=== PATIENT | male | born 1975 | race Caucasian/White ===

== ENCOUNTER 2018-12-10 05:06 | Day surgery (SDC) | payer BC, OTHER ==
[2018-12-09 12:28] VITALS: BMI 27.3
[2018-12-10] MEDS ORDERED: DEXAMETHASONE SOD PHOSPHATE 4 MG/1 ML VIAL ONE ×2 (08:15→11:49)
[2018-12-10] MEDS ORDERED: SODIUM CHLORIDE 0.9% P/F 10 ML VIAL IJ ONE (08:15)
[2018-12-10] MEDS ORDERED: ceFAZolin SODIUM 1 GM VIAL ONE ×2 (08:15→11:49)
[2018-12-10] MEDS ORDERED: LIDOCAINE HCL/PF 2% SDV 5ML VIAL ONE ×2 (08:15→11:49)
[2018-12-10] MEDS ORDERED: KETOROLAC TROMETHAMINE 30 MG/1 ML VIAL ONE ×2 (08:15→11:49)
[2018-12-10] MEDS ORDERED: PROPOFOL 20 ML ONE ×2 (08:17→10:33)
[2018-12-10] MEDS ORDERED: DESFLURANE GAS 240 ML BOTTLE IH ONE (08:21)
[2018-12-10] MEDS ORDERED: DEXMEDETOMIDINE HCL 200 MCG/2 ML IVPB ONE (08:21)
[2018-12-10] MEDS ORDERED: BUPIVACAINE HCL/PF 0.5% (5MG/ML) 10 ML VIAL ONE (08:57)
[2018-12-10] MEDS ORDERED: MIDAZOLAM HCL 2 MG/2 ML SINGLE DOSE VIAL ONE ×3 (08:58→10:32)
--- NOTE | 2018-12-10 10:07 | HP ---
[facility] - Chief Complaint Chief Complaint: left ankle fx - Past Medical History Allergies/Adverse Reactions: Allergies Allergy/AdvReac Type Severity Reaction Status Date / Time Penicillins Allergy Severe Rash Verified 12/10/18 08:56 - Current Medications Current Medications: Home Medications Medication Instructions Recorded Oxycodone HCl/Acetaminophen 1 tab PO Q6H PRN #30 tablet MDD 6 12/10/18 [Percocet 5-325 mg Tablet] [facility]ellite Physical Exam - Physical Examination Vital Signs: Vital Signs Period Temp Pulse Resp BP Sys/Webster Pulse Ox Last 24 Hr 98.2 F-98.2 F 100-100 20-20 113-113/79-79 99 General Appearance: Well Nourished, Well Developed, Alert & Oriented x3 ENT: Clear Lung: Normal air movement Heart: Regular rate & rhythm Extremities: Other (left ankle- splint intact, + swelling, + ttp, nvi xrays show bella c distal fibula fx, medial mall fx, widening of the mortise) Neurological: Intact, Alert, Oriented [facility]ellite Impression/Plan - Impression/Plan Impression: left ankle fx Operative Procedure: left ankle orif Date to be Performed: 12/10/18
[2018-12-10] MEDS: ceFAZolin SODIUM 1 GM VIAL IVPB ONE ×2 (10:35→15:20)
--- NOTE | 2018-12-10 12:03 | OP ---
Operative Note - Note: Operative Date: 12/10/18 ([facility]) Pre-Operative Diagnosis: left ankle fx Operation: left ankle orif, syndesmosis repair Post-Operative Diagnosis: Same as Pre-op Surgeon: Joseph Vogel Sap Bw Architect: Eugenio Langston Anesthesiologist/CONSULTANT IN ERGONOMICS AND SAFETY: Daniella Ordonez MD Anesthesia: General, Local Estimated Blood Loss (mls): 5 (tourniquet) Operative Report Dictated: Yes
[2018-12-10] MEDS ORDERED: CEFAZOLIN 1 GM/D5W 1 GM/50 ML BAG IVPB ONE (12:15)
[2018-12-10] MEDS ORDERED: PROMETHAZINE HCL 25 MG/1 ML VIAL IVPB PRN (12:20)
[2018-12-10] MEDS ORDERED: oxyCODONE HCL 5 MG TABLET PO PRN (12:20)
[2018-12-10] MEDS ORDERED: ONDANSETRON 4 MG/2 ML VIAL IVPUSH PRN (12:20)
[2018-12-10] MEDS ORDERED: LACTATED RINGERS SOLUTION 1,000 ML IV SCH (12:30)
[2018-12-10] MEDS ORDERED: CEFAZOLIN 1 GM/D5W 1 GM/50 ML BAG ONE (14:18)
[2018-12-10 15:19] VITALS: TEMP 97.7
[2018-12-10 16:07] VITALS: BP 124/86; PULSE 80
--- NOTE | 2018-12-11 06:57 | OP ---
DATE OF OPERATION: 12/10/2018 PREOPERATIVE DIAGNOSIS: Cox C left ankle fracture with syndesmosis rupture. POSTOPERATIVE DIAGNOSIS: Cox C left ankle fracture with syndesmosis rupture. PROCEDURE: Open reduction and internal fixation, left bimalleolar ankle fracture and syndesmosis repair. SURGICAL ATTENDING: Joseph Vogel MD MAINTENANCE SHOP CLERK: BYRON Fox ANESTHESIA: Regional and general. CLOSURE: A [place] distal fibula straight plate with appropriate screws laterally, two 4.0 cannulated screws in the medial malleolus, 1 syndesmosis TightRope and 2-0 Vicryl, subcutaneous, and alin, skin. ESTIMATED BLOOD LOSS: Negligible. TOURNIQUET TIME: Approximately an hour and 10 minutes. COMPLICATIONS: None. CONDITION: To recovery room in stable condition. DESCRIPTION OF OPERATIVE PROCEDURE: Patient taken to the operating room on December 10, 2018. Regional and general anesthesia was administered by the anesthesiologist. IV Kefzol administered prophylactically prior to the case. A well-padded pneumatic tourniquet was placed on the left proximal calf away from the fibular head. Left lower extremity was prepped and draped in the usual sterile fashion. Leg was exsanguinated with an Esmarch bandage. Tourniquet was inflated to 250 mmHg. An 8-cm longitudinal incision over the lateral distal fibula centered over the fracture was incised. Hemostasis achieved with Bovie cautery. Sharp dissection was carried down to the level of the fracture. Periosteal elevator was used to clear out the fracture proximally and distally. Curets and irrigation were used to clean up the fracture site. There was some anterior and posterior comminution which helped us make the decision not to attempt to lag the fracture. An anatomical reduction was obtained using a serrated reduction clamp. An 8-hole lateral fibula plate was clamped to the posterolateral aspect of the fibula. First 1 proximal and distal screw was drilled, depth gauged, and screwed with the appropriate size nonlocking screw to cinch the plate to the bone. Then multiple proximal and distal screws were placed by drilling, depth gauging and screwing of the appropriate size locking screws, achieving excellent fixation. Fluoroscopy revealed excellent position of the plate and screws. Next our attention was directed to the medial side. A 4- to 5-cm curved longitudinal incision over the distal medial tibia was incised. Hemostasis achieved using Bovie cautery. Sharp dissection was carried down to the level of the fracture. Periosteal elevator and a 15 blade were used to feather the periosteum away from the fracture. A pointed reduction clamp was used to obtain an anatomic reduction of the medial malleolus. Two guidewires from the 4.0 [place] cannulated screw set were drilled from the tip of the medial malleolus past the fracture into the distal posterior aspect of the tibia. Fluoroscopy revealed excellent position. Both screws were depth gauged, then screwed with the appropriate size lag screws grabbing the posterior cortex, compressing the fracture. Excellent anatomical reduction of the mortise was seen. External rotation, however, revealed some opening of the syndesmosis. With the ankle at neutral and internally rotated a guidewire from the [employer] titanium syndesmosis TightRope was drilled through 4 cortices from the posterolateral fibula through the tibia parallel to the ankle joint. All 4 cortices were then drilled and then a syndesmosis TightRope was deployed. The button was flipped on the medial side and then the TightRope was toggled, reducing the syndesmosis snugly. This was again done with the ankle at neutral and internally rotated. The sutures were cut flush with the bone. This TightRope was done just distal to the fibula plate and was also titanium as well which was the same metal as the plate and screws. X-ray in AP, lateral and mortise views revealed excellent position of all hardware with anatomic reduction of the fracture and no opening of the syndesmosis with external rotation. Both incisions were irrigated with copious amounts of irrigation. Subcutaneous was closed with 2-0 Vicryl and alin for skin. Sterile pressure dressing followed by a "U" and a posterior splint was applied. Patient awakened from anesthesia and transferred to recovery in stable condition. No complications. Estimated blood loss negligible. Tourniquet time was approximately an hour and 10 minutes. Montrell [id number]
== END 2018-12-10 16:18 | disposition home or self-care (01) ==
LOC: JASU-SURG 05:06
PROVIDERS: ATTEND Orthopaedic Surgery
PROC: 0QSK04Z Reposition Left Fibula with Internal Fixation Device, Open Approach (ICD-10-PCS; 2018-12-10)
PROC: 0QSH04Z Reposition Left Tibia with Internal Fixation Device, Open Approach (ICD-10-PCS; principal; 2018-12-10 09:45)
DX: S82.842A Displaced bimalleolar fracture of left lower leg, initial encounter for closed fracture (principal); S93.432A Sprain of tibiofibular ligament of left ankle, initial encounter; X58.XXXA Exposure to other specified factors, initial encounter; Y93.9 Activity, unspecified; Y92.9 Unspecified place or not applicable
CPT/HCPCS: 27814; 27829; C1713; 76000-TC-FY; 94760